=== PATIENT | male | born 1970 ===

== ENCOUNTER 2018-09-09 10:47 | Emergency (ER) | payer OTHER ==
[~2018-09-09] VITALS: Ht 172.7 cm; Wt 81.7 kg
[2018-09-09] MEDS ORDERED: HYDR1TAB94 PO (11:21)
[2018-09-09] MEDS ORDERED: CYCL10 PO (11:21)
[2018-09-09] MEDS ORDERED: IBUP800 PO (11:21)
== END 2018-09-09 11:24 | disposition home or self-care (01) ==
LOC: ER 10:47
DX: M54.5 Low back pain (principal); Z79.899 Other long term (current) drug therapy
CPT/HCPCS: 99283

== ENCOUNTER 2020-12-27 02:19 | Emergency (ER) | payer OTHER ==
[~2020-12-27] VITALS: Ht 167.6 cm; Wt 81.7 kg
[~2020-12-27 02:19] MED LIST: CYCL10 PO; HYDR1TAB94 PO; IBUP800 PO
[2020-12-27] MEDS ORDERED: Amoxicillin500 M1 PO (03:25)
== END 2020-12-27 03:38 | disposition home or self-care (01) ==
LOC: ER 02:19
DX: H66.92 Otitis media, unspecified, left ear (principal)
CPT/HCPCS: 99282; A9270

== ENCOUNTER 2022-03-06 07:12 | Emergency (ER) | payer OTHER ==
[~2022-03-06] VITALS: Ht 170.2 cm; Wt 86.2 kg
[~2022-03-06 07:12] MED LIST changes: +Amoxicillin500 M1 PO
[2022-03-06] MEDS ORDERED: Amoxicillin875 MG PO (08:23)
== END 2022-03-06 08:24 | disposition home or self-care (01) ==
LOC: ER 07:12
DX: K08.89 Other specified disorders of teeth and supporting structures (principal)
CPT/HCPCS: 99282